=== PATIENT | female | born 2000 | race African-American/Black ===

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

== ENCOUNTER 2021-11-02 14:06 | Emergency (ER) | payer OTHER ==
[2021-11-02 14:22] VITALS: RESP 18; TEMP 98; BMI 19.8
[2021-11-02 15:49] LABS: BASO % 0.2 % (0-2.0); EOS % 2.4 % (0-4.5); HEMATOCRIT 43.6 % (32.4-45.2); HEMOGLOBIN 14.9 GM/dL (10.7-15.3); LYMPH % 13.1 % (8-40); MCH 29.9 pg (25.7-33.7); MCHC 34.2 g/dl (32.0-36.0); MEAN CELL VOLUME 87.4 fl (80-96); MEAN PLT VOLUME 8.6 fl (7.5-11.1); MONO % 6.3 % (3.8-10.2); PLATELET COUNT 210 10^3/uL (134-434); RBC 4.98 M/mm3 (3.60-5.2); RDW 12.6 % (11.6-15.6); WHITE BLOOD COUNT 10.1 K/mm3 (4.0-10.0)
[2021-11-02 15:56] LABS: INR 1.3 (0.83-1.09)
[2021-11-02 16:08] LABS: CHLORIDE 106 mmol/L (98-107); SODIUM 141 mmol/L (136-145)
[2021-11-02 16:10] LABS: ANION GAP 8 MMOL/L (8-16); BLOOD UREA NITROGEN 6.6 mg/dL (7-18); CALCIUM 8.9 mg/dL (8.5-10.1); CO2 27 mmol/L (21-32); GLUCOSE,RANDOM 116 mg/dL (74-106)
[2021-11-02 16:11] LABS: ALBUMIN 3.5 g/dl (3.4-5.0)
[2021-11-02 16:13] LABS: SGOT/AST 11 U/L (15-37); SGPT/ALT 16 U/L (13-61)
[2021-11-02 16:14] LABS: CREATININE 0.7 mg/dL (0.55-1.3)
[2021-11-02 16:15] LABS: BILIRUBIN,TOTAL 0.6 mg/dL (0.2-1)
[2021-11-02 16:16] LABS: ALK PHOS 62 U/L (45-117)
[2021-11-02] MEDS ORDERED: SODIUM CHLORIDE 0.9% 500 ML INFUS.BAG IV ONE (19:22)
[2021-11-02] MEDS ORDERED: AZITHROMYCIN 500 MG TABLET PO ONE (19:22)
[2021-11-02] MEDS ORDERED: CEFTRIAXONE 1,000 MG in DEXTROSE 5%-WATER - 50 ML IVPB ONE (19:22)
[2021-11-02] MEDS: ALBUTEROL SO4 2.5/IPRATROPIUM 0.5 INH SOL 3 ML VIAL.NEB. NEB SCH ×3 (20:02→20:18)
[2021-11-02] MEDS ORDERED: ALBUTEROL SO4 2.5/IPRATROPIUM 0.5 INH SOL 3 ML VIAL.NEB. NEB ONE (20:04)
[2021-11-02] MEDS ORDERED: AZITHROMYCIN IVPB 500 MG/250 ML BAG IVPB ONE (20:04)
[2021-11-02] MEDS ORDERED: CEFTRIAXONE 1 GM/50 ML BAG ONE (20:04)
[2021-11-02] MEDS ORDERED: AZITHROMYCIN 250 MG TABLET ONE (20:05)
[2021-11-02 20:20] VITALS: BP 104/65; PULSE 92
== END 2021-11-02 21:45 | disposition home or self-care (01) ==
LOC: JER 14:06
PROC: 3E033GC Introduction of Other Therapeutic Substance into Peripheral Vein, Percutaneous Approach (ICD-10-PCS; principal; 2021-11-02)
PROC: 3E0F7GC Introduction of Other Therapeutic Substance into Respiratory Tract, Via Natural or Artificial Opening (ICD-10-PCS; 2021-11-02)
DX: J18.9 Pneumonia, unspecified organism (principal)
CPT/HCPCS: 0241U-QW; 36415; 71046-TC-FY; 71275-TC; 80053; 84484; 84703; 85025; 85610; 93005; 93010; 99285-25

== ENCOUNTER 2022-06-11 20:36 | Emergency (ER) | payer OTHER ==
[2022-06-11 20:45] VITALS: RESP 18; TEMP 98.3; BMI 17.7
[2022-06-11 22:48] VITALS: BP 110/68; PULSE 89
== END 2022-06-11 22:48 | disposition home or self-care (01) ==
LOC: JERFT 20:36
DX: K64.9 Unspecified hemorrhoids (principal)
CPT/HCPCS: 99283-25